=== PATIENT | female | born 1970 | race Caucasian/White ===

== ENCOUNTER 2016-11-30 10:22 | Day surgery (SDC) | payer OTHER ==
[2016-11-30] VITALS (10 sets, daily range): BP systolic 86–104; BP diastolic 49–61; PULSE 60–78; RESP 17–24; Ht 157.5 cm; Wt 98.0 kg
[~2016-11-30] VITALS: Ht 157.5 cm; Wt 98.0 kg
[~2016-11-30 10:22] MED LIST: SEVOFLURANE 15 MIN ONE
[2016-11-30] MEDS ORDERED: FENTAnyl 50 MCG/ML VIAL ONE (11:36)
[2016-11-30] MEDS ORDERED: MIDAZOLAM 1 MG/ML 2 ML INJ ONE (11:36)
[2016-11-30] MEDS ORDERED: SOD CHLORIDE 0.9% 1,000 ML IV SCH (12:00)
[2016-11-30] MEDS ORDERED: CLINDAMYCIN 600 MG/D5W (PMX) 50 ML IVPB ONE (12:00)
[2016-11-30] MEDS ORDERED: BUPIVACAINE 0.25% (MPF) 30 ML INJ ONE (12:07)
[2016-11-30 12:10] LABS: INR 1.04; PROTIME 13.6 Sec (12.2-14.2); PT RATIO 1.1
[2016-11-30 12:12] LABS: ALBUMIN 4.1 g/dl (3.3-4.9); ALBUMIN/GLOBULIN RATIO 1.36; BILIRUBIN,INDIRECT 0.9 mg/dl (0-1.1); BILIRUBIN,TOTAL 0.9 mg/dl (0.2-1.3); TOTAL PROTEIN 7.1 g/dl (6.1-8.1)
[2016-11-30 12:13] LABS: BASOPHILS % 0.4 % (0.0-2.0); EOSINOPHILS # 0.1 10^3/ul (0.0-0.5); EOSINOPHILS % 1.6 % (0.0-7.0); HEMATOCRIT 38.8 % (37.0-47.0); HEMOGLOBIN 13.6 g/dl (12.0-16.0); LYMPHOCYTES # 1.5 10^3/ul (0.8-2.9); LYMPHOCYTES % 30.6 % (15.0-51.0); MEAN CORPUSCULAR HEMOGLOBIN 35.2 pg (29.0-33.0); MEAN CORPUSCULAR HGB CONC 35.1 g/dl (32.0-37.0); MEAN CORPUSCULAR VOLUME 100.5 fl (82.0-101.0); MEAN PLATELET VOLUME 10.8 fl (7.4-10.4); MONOCYTE # 0.4 10^3/ul (0.3-0.9); MONOCYTES % 7.8 % (0.0-11.0); NEUTROPHILS % 59.6 % (39.0-77.0); PLATELET COUNT 194 10^3/UL (140-415); RED BLOOD COUNT 3.86 10^6/ul (4.20-5.40); RED CELL DISTRIBUTION WIDTH 12.3 % (11.5-14.5)
[2016-11-30 12:20] LABS: CALCIUM 9.5 mg/dl (8.4-10.2); CREATININE 0.76 mg/dl (0.44-1.00)
[2016-11-30] MEDS ORDERED: NEOSTIGMINE 3 MG/3 ML SYRINGE ONE (13:01)
[2016-11-30] MEDS ORDERED: LIDOCAINE 2% (SDV) 5 ML INJ ONE (13:01)
[2016-11-30] MEDS ORDERED: GLYCOPYRROLATE 0.4 MG INJ ONE (13:01)
[2016-11-30] MEDS ORDERED: ROCURONIUM 50 MG INJ ONE (13:01)
[2016-11-30] MEDS ORDERED: CEFAZOLIN 1 GM INJ ONE (13:01)
[2016-11-30] MEDS ORDERED: PROPOFOL 20 ML ONE (13:01)
[2016-11-30] MEDS ORDERED: ONDANSETRON 4 MG INJ ONE (13:02)
--- NOTE | 2016-11-30 13:09 | OPR ---
Date/Time of Note Date/Time of Note DATE: 11/30/16 TIME: 13:03 Operative Report Procedure Date: Nov 30, 2016 Preoperative Diagnosis hemorrhoids and perianal mass x 2 Postoperative Diagnosis same Operation Performed 1. proctoplasty for prolapse of mucoal membranes cpt code 18479 2. ligation of internal hemorrhoids, multiple procedures cpt code 08288 3. rigid proctoscopy 4. resection of anterior perianal mass 1 cm mass 5. resection of posterior perianal mass 3 cm mass 6. therapeutic injection of subcutaneous marcaine cpt code 28620 Surgeon: Nader ELIAS Specimens anterior perianal mass posterior perianal mass Nader ELIAS Nov 30, 2016 13:09
[2016-11-30] MEDS ORDERED: HYDROCODONE/APAP (5/325) TAB PO ONE (13:30)
--- NOTE | 2016-11-30 14:26 | OPR ---
DATE OF OPERATION: 11/30/2016 INDICATION: This is a 46-year-old female with perianal mass and hemorrhoids. She requests surgical repair. Risks, alternatives, benefits of procedure were discussed. The patient expressed understanding and consents to the operation. PREOPERATIVE DIAGNOSIS: Hemorrhoids and perianal mass. POSTOPERATIVE DIAGNOSIS: Hemorrhoids and perianal mass. OPERATION PERFORMED: 1. Proctoplasty for prolapse of mucous membranes with CPT code 79671. 2. Ligation of internal hemorrhoids for multiple procedures, CPT codes 66433. 3. Rigid proctoscopy. 4. Resection of anterior perianal mass with 1-cm size mass. 5. Excision of posterior perianal mass with 3-cm size mass. 6. Therapeutic injection of subcutaneous Marcaine [place] [address]. SURGEON: Roxy Seth MD SPECIMEN: 1. Anterior perianal masses. 2. Posterior perianal mass. ANESTHESIA: General. COMPLICATIONS: None. OPERATIVE PROCEDURE: Patient taken to the OR, prepped and draped in usual sterile fashion. Surgical time out was performed. IV antibiotics were given. Rigid proctoscopy was performed. There was no evidence of any masses or lesions. CHC device is used to identify the internal hemorrhoidal artery. These were all ligated with multiple [id number] 2-Vicryl sutures in multiple quadrants. Approximately eight sutures were placed. Then additional 2-0 Vicryl was used to do the proctoplasty from distal to proximal up to the dentate line in a running fashion and tied down, thus performing the mucous proctoplasty. Attention was then paid to the perianal masses. There was an anterior perianal mass with which was excised with cautery. There was good hemostasis. The posterior perianal mass was larger, approximately 2 to 3 cm. This was excised using cautery. The surgical site was hemostatic. These areas were both hemostatic. Therapeutic subcutaneous Marcaine and lidocaine mixture was placed all around the anal mucosa and also at the surgical excision site. The anus was checked for patency by digital manipulation. There was good patency without any kind of stricturing or narrowing. Dry dressings were applied. Dictated By: Wei Rao /elin/zane /Document#: [id number]
== END 2016-11-30 16:45 | disposition home or self-care (01) ==
LOC: SDS 10:22
PROVIDERS: ATTEND Surgery
DX: K64.9 Unspecified hemorrhoids (principal); K62.0 Anal polyp
CPT/HCPCS: 45505; 46922; 46946; 80053; 84703; 85025; 85610; 85730; 88307; J0690; J2250; J2405; J2710; J3010; Z7512; Z7610